=== PATIENT | female | born 1955 | race African-American/Black ===

== ENCOUNTER 2017-10-09 16:46 | Emergency (ER) | payer MEDICARE, OTHER ==
[~2017-10-09] VITALS: Ht 167.6 cm; Wt 63.5 kg
[~2017-10-09 16:46] MED LIST: ACET-784 PO; ASPI-556 PO; DM/P295L17 PO; LISI-662 PO
[2017-10-09] MEDS ORDERED: AMLO-512 PO (17:00)
[2017-10-09 17:07] LABS: GLUCOSE,POINT OF CARE 131 MG/DL (70-110)
[2017-10-09] MEDS ORDERED: DEXAMETHASONE SOD PHOS 4 MG/ML 5 ML VIAL IM ONE (17:45)
[2017-10-09] MEDS ORDERED: ALBUTEROL SULFATE 5 MG/ML 20 ML NEB SOLN [BULK] NEB ONE (17:45)
[2017-10-09] MEDS ORDERED: 0.9% SODIUM CHLORIDE 5 ML NEB SOLUTION NEB ONE (18:01)
[2017-10-09 18:35] VITALS: BP 143/93
[2017-10-09 18:53] LABS: INFLUENZA TYPE B NEGATIVE FOR TYPE B (NEGATIVE)
== END 2017-10-09 19:39 | disposition home or self-care (01) ==
LOC: EMS 16:48
DX: J06.9 Acute upper respiratory infection, unspecified (principal); J40 Bronchitis, not specified as acute or chronic; I10 Essential (primary) hypertension; F12.90 Cannabis use, unspecified, uncomplicated; F17.210 Nicotine dependence, cigarettes, uncomplicated
CPT/HCPCS: 71020; 82962; 87430; 87804; 94640; 96372; 99285; J1100

== ENCOUNTER 2020-04-02 08:53 | Emergency (ER) | payer MEDICARE, OTHER ==
[~2020-04-02] VITALS: Ht 167.6 cm; Wt 59.1 kg
[~2020-04-02 08:53] MED LIST changes: -ACET-784 PO; +AMLO10TA7 PO; -ASPI-556 PO; -DM/P295L17 PO; -LISI-662 PO
[2020-04-02 11:13] VITALS: BP 172/94
== END 2020-04-02 11:33 | disposition home or self-care (01) ==
LOC: EMS 09:03
DX: Z11.59 Encounter for screening for other viral diseases (principal); H61.21 Impacted cerumen, right ear
CPT/HCPCS: 69209; 69210; 87635

== ENCOUNTER 2021-03-31 12:52 | Emergency (ER) | payer MEDICARE, OTHER ==
[~2021-03-31] VITALS: Ht 172.7 cm; Wt 100.0 kg
[~2021-03-31 12:52] MED LIST changes: +AMLO-258 PO; -AMLO10TA7 PO
[2021-03-31 12:54] VITALS: BP 150/94
[2021-03-31] MEDS ORDERED: ASPI-1450 PO (13:12)
[2021-03-31] MEDS ORDERED: ATOR10TA84 PO (13:12)
[2021-03-31] MEDS ORDERED: AMOXICILLIN TRIHYDRATE 250 MG CAPSULE PO ONE (14:15)
[2021-03-31] MEDS ORDERED: HYDROCODONE/ACETAMINOPHEN 5-325 MG TABLET PO ONE (14:15)
== END 2021-03-31 13:51 | disposition home or self-care (01) ==
LOC: EMS 12:52
DX: K04.7 Periapical abscess without sinus (principal); I10 Essential (primary) hypertension; F17.210 Nicotine dependence, cigarettes, uncomplicated; F12.90 Cannabis use, unspecified, uncomplicated; Z90.710 Acquired absence of both cervix and uterus; Z79.82 Long term (current) use of aspirin
CPT/HCPCS: 99283

== ENCOUNTER 2021-11-01 09:05 | Emergency (ER) | payer MEDICARE, OTHER ==
[~2021-11-01] VITALS: Ht 170.2 cm; Wt 99.1 kg
[~2021-11-01 09:05] MED LIST changes: +ASPI-1450 PO; +ATOR10TA84 PO
[2021-11-01 09:17] VITALS: BP 173/80
[2021-11-01] MEDS ORDERED: BUPIVACAINE HCL/PF 0.25% 10 ML VIAL SQ ONE (09:45)
[2021-11-01] MEDS ORDERED: POVIDONE-IODINE 10% 120 ML SOLUTION TP ONE (09:45)
== END 2021-11-01 10:37 | disposition home or self-care (01) ==
LOC: EMS 09:05
DX: L02.214 Cutaneous abscess of groin (principal); J06.9 Acute upper respiratory infection, unspecified; I10 Essential (primary) hypertension; F12.90 Cannabis use, unspecified, uncomplicated; F17.210 Nicotine dependence, cigarettes, uncomplicated; Z79.899 Other long term (current) drug therapy; Z20.822 Contact with and (suspected) exposure to COVID-19
CPT/HCPCS: 10060; 99282; J3490; U0003

== ENCOUNTER 2021-11-04 09:24 | Emergency (ER) | payer MEDICARE, OTHER ==
[~2021-11-04] VITALS: Ht 167.6 cm; Wt 97.7 kg
[2021-11-04 10:00] VITALS: BP 143/88
== END 2021-11-04 11:24 | disposition home or self-care (01) ==
LOC: EMS 09:32
DX: L02.214 Cutaneous abscess of groin (principal); E78.00 Pure hypercholesterolemia, unspecified; F17.210 Nicotine dependence, cigarettes, uncomplicated; Z48.00 Encounter for change or removal of nonsurgical wound dressing; Z90.710 Acquired absence of both cervix and uterus
CPT/HCPCS: 99281; Z7502

== ENCOUNTER 2021-11-07 09:39 | Emergency (ER) | payer MEDICARE, OTHER ==
[~2021-11-07] VITALS: Ht 167.6 cm; Wt 98.6 kg
[2021-11-07 11:09] VITALS: BP 119/70
== END 2021-11-07 11:14 | disposition home or self-care (01) ==
LOC: EMS 09:39
DX: Z48.00 Encounter for change or removal of nonsurgical wound dressing (principal); E78.00 Pure hypercholesterolemia, unspecified; Z79.82 Long term (current) use of aspirin; Z79.899 Other long term (current) drug therapy; F17.210 Nicotine dependence, cigarettes, uncomplicated
CPT/HCPCS: 99281; Z7502

== ENCOUNTER 2022-03-27 08:50 | Emergency (ER) | payer MEDICARE, OTHER ==
[~2022-03-27] VITALS: Ht 167.6 cm; Wt 104.5 kg
[2022-03-27] MEDS ORDERED: IBUP-2070 PO (09:59)
[2022-03-27 10:05] VITALS: BP 138/100
== END 2022-03-27 10:11 | disposition home or self-care (01) ==
LOC: EMS 08:50
DX: M77.11 Lateral epicondylitis, right elbow (principal); E78.00 Pure hypercholesterolemia, unspecified; F17.210 Nicotine dependence, cigarettes, uncomplicated; Z86.16 Personal history of COVID-19; Z90.710 Acquired absence of both cervix and uterus
CPT/HCPCS: 99282; Z7502